=== PATIENT | male | born 1995 | race Caucasian/White ===

== ENCOUNTER → 2018-08-04 | Outpatient (CLI) | payer SELFPAY ==
--- NOTE | 2018-08-04 16:08 | RADIOLOGY IMAGING REPORT ---
[place]AC[place] [facility] [place] NAME: Douglas Crump : 1995 MR: [id number] V: [id number] EXAM DATE: ORDERING PHYSICIAN: DANNY HERCULES TECHNOLOGIST: Location: [facility] Patient: Douglas Crump : 1995 Visit/Account:[id number] Date of Sevice: 08/04/2018 ELBOW 3 VIEW LEFT HISTORY: Patient had a fall yesterday. Having pain down into thumb and upper proximal part of the a rm ADDITIONAL HISTORY: 4 views per physician request COMPARISON: None. FINDINGS: 4 views were obtained of the left elbow. Alignment is anatomic. Joint spaces are well-maintained. There is no fracture or subluxation. Bony mineralization is normal. There may be a small joint effusion present. IMPRESSION: Possible small joint effusion. There is no evidence of fracture. If the patient has ongoing sympto ms, follow-up study may be considered in 7-10 days. Report Dictated By: Muna Flores MD at 08/04/2018 4:02 PM Report E-Signed By: Muna Flores MD at 08/04/2018 4:03 PM WSN:[id number]
== END ==
LOC: RAD 13:13
PROVIDERS: ATTEND Physician Assistant
DX: M25.422 Effusion, left elbow (principal)